=== PATIENT | female | born 1945 | race Caucasian/White ===

== ENCOUNTER 2024-05-02 14:47 | Emergency (ER) | payer MEDICARE ==
[~2024-05-02] VITALS: Ht 165.1 cm; Wt 84.6 kg
[2024-05-02] VITALS (9 sets, daily range): BP systolic 122–178; BP diastolic 70–101
[~2024-05-02 14:47] MED LIST: ADLT ASA LOW81 MG PO; ARICEPT PO; ASPIRIN LOW DOS81 M1 PO; ASPIRIN325 MG PO; ATORVASTATIN CA80 MG PO; B COMPLE3 PO; B12-ACTIVE1 MG PO; B121000 MC1 PO; BACTRIM DS1 TAB PO; BUSPAR10 M1 OR; CIPROFLOXACN500 MG PO; COQ-10100 M1 PO; CYANOCOBALAM IM; DONEPEZIL10 MG PO; DOXY-CAPS100 MG PO; EFFEXOR75 MG PO; FISH OIL 1200 M1 CAP PO; FLEXERIL PO; FLEXERIL10 MG PO; FLUOXETINE20 MG PO; FLUOXETINE40 MG PO; KETOROLAC0.5 % OD; LEVOTHYROXIN100 MC1 PO; LEVOTHYROXIN100 MCG PO; LEVOTHYROXIN50 MCG PO; LEVOTHYROXIN75 MC1 PO; LEVOTHYROXIN88 MC1 PO; LIPITOR20 M1 PO; LIPITOR80 M1 PO; LISINOPRIL10 MG PO; MACROBID100 MG PO; MAGNESIUM 250 M1 TAB PO; MEMANTINE HYDROC5 MG PO; MOXIFLOXACIN HC0.5 % OD; NAMENDA1 TAB PO; NAPROSYN500 MG PO; NO HOME MEDS; PAROXETINE20 MG PO; PAROXETINE25 MG PO; PLAVIX75 MG PO; PRED FORTE1 % OD; RISPERIDONE0.5 MG PO; SG ASA LOW81 M1 PO; SIMVASTATIN40 MG PO; TAB-A-VITE PO; TUMS ULTRA 101000 MG PO; ULTRAM50 M1 PO; VENLAFAXINE HCL75 M1 PO; VENLAFAXINE75 M1 PO; VITAMIN B-122500 MCG; ZOCOR20 MG PO; ZOFRAN4 MG/TAB PO
[2024-05-02] MEDS ORDERED: LIDOcaine HCl 1% (Local Anesth.) 20 ML VIAL STI STA (14:52)
[2024-05-02] MEDS ORDERED: POVIDONE IODINE 0.5 OZ/BTL TOP ONE (14:55)
[2024-05-02] MEDS ORDERED: Diph, Acellular Pertussis, Tet 0.5 ML/VIAL (Tdap) SDV IM ONE ×2 (14:55)
[2024-05-02 15:16] LABS: BASO% 0.6 % (0-3); EOS% 1.3 % (0-8); HEMATOCRIT 37.3 % (37.0-47.0); HEMOGLOBIN 11.9 g/dl (12.0-16.0); IMMATURE GRANULOCYTES 0.3 % (0.0-5.0); LYMPH% 26.8 % (15-41); MEAN CELL VOLUME 103.9 fL CALC (80.0-100.0); MEAN CORPUSCULAR HGB 33.1 pG CALC (26.0-32.0); MEAN CORPUSCULAR HGB CONC 31.9 g/dL CAL (32.0-36.0); MONO% 8.4 % (2-13); NEUT# 4.82 thou/uL (2.00-7.15); NEUT% 62.6 % (42-76); RED BLOOD COUNT 3.59 mill/uL (4.20-5.60); RED CELL DISTRI WIDTH 13.9 % (11.5-15.5)
[2024-05-02 15:30] LABS: ALKALINE PHOSPHATASE 97 u/l (38-126); BILIRUBIN, TOTAL 0.4 mg/dL (0.02-1.3); BUN 21 mg/dL (8-23); BUN/CREATININE RATIO 16 (12-20 (CALC)); CARBON DIOXIDE 28 mmol/l (22-30); CHLORIDE 109 mmol/l (95-108); CREATININE 1.3 mg/dL (0.5-1.0); ESTIMATED GFR 42 ML/MIN (>=90 (CALC)); SGOT/AST 48 u/l (9-36); SODIUM 142 mmol/l (137-146)
[2024-05-02 15:40] LABS: ANION GAP 9 (6-22 (CALC)); POTASSIUM 4.3 mmol/l (3.5-5.1); TOTAL PROTEIN 7.5 g/dL (6.3-8.2)
== END 2024-05-02 17:03 | disposition short-term general hospital (02) ==
LOC: ED 14:47
PROVIDERS: Family Medicine
DX: S06.2X0A Diffuse traumatic brain injury without loss of consciousness, initial encounter (principal); I10 Essential (primary) hypertension; F03.90 Unspecified dementia, unspecified severity, without behavioral disturbance, psychotic disturbance, mood disturbance, and anxiety; F32.A Depression, unspecified; S01.81XA Laceration without foreign body of other part of head, initial encounter; W01.0XXA Fall on same level from slipping, tripping and stumbling without subsequent striking against object, initial encounter; Y92.099 Unspecified place in other non-institutional residence as the place of occurrence of the external cause
CPT/HCPCS: J1953